=== PATIENT | male | born 1940 | race Caucasian/White ===

== ENCOUNTER → 2016-09-22 | Outpatient (CLI) | payer OTHER, MEDICARE ==
[~2016-09-22] MED LIST: IOPAMIDOL (ISOVUE-300) 50 ML VIAL IV ONE
[2016-09-22 10:30] LABS: CREATININE 1.5 mg/dL (0.7-1.3)
--- NOTE | 2016-09-22 17:28 | CT ---
CT IAC/Temporal Bones, With Intravenous Contrast History: Left Pseudomonas mastoiditis, with recurrent pain, post surgery. Left ear pain. H60.312. Technique: Axial computed tomographic images of the temporal bones at 1.25-mm slice thickness, with multiplanar and 3D reconstructions. Images performed during the uneventful intravenous administratio n of 75 mL Isovue-300 contrast. Multiplanar reconstructions including 3D reconstructions performed a nd evaluated on [employer] workstation in order to better evaluate the facial bones for fracture. Dose r eduction techniques were utilized. Comparison: CT July 2016. Findings: Postsurgical changes involving the posterolateral aspect of the left mastoid air cells, wi th a 2- x 1.2-cm osseous resection, demonstrating soft tissue in this region, with mixed density, amhet suring 1.5 x 1.7 cm. No evidence of focal fluid collection in the postoperative cavity or posterior to the left ear. The left middle ear ossicles appear intact, without fluid in the middle ear or left external auditory canal. The inferoanterior medial air cells in the left mastoid bone demonstrate n o evidence of fluid levels. No fluid in the sphenoid sinuses. No definite inflammatory changes in the visualized inferior aspect of the left parotid gland. Bilate ral paranasal sinuses are clear. Right mastoid air cells, middle ear, and external auditory canal ap pear clear. The right middle ear ossicles appear intact. Limited intracranial region demonstrates n o midline shift or hydrocephalus. Impressions 1. Postsurgical changes, with partial resection of the left mastoid bone, demonstrating residual sof t tissue, which is nonspecific. However, no evidence of drainable abscess or focal fluid collection. 2. No fluid in the left middle ear, external auditory canal, or anteromedial mastoid air cells. 3. Consider MRI of the brain, without and with contrast enhancement, which is a more sensitive study for postsurgical osteomyelitis or fluid collection. Other consideration includes [id number] tagged white blood cell nuclear medicine scan. Dr. Melendez has been paged. A Call Requested test result notification was sent via the [employer] service, 5:41:28 PM, 09/22/2016, [employer] Message ID [id number].
== END ==
LOC: FIMAGING 09:36
PROVIDERS: ATTEND Otolaryngology
DX: H92.02 Otalgia, left ear (principal); Z98.890 Other specified postprocedural states; H95.192 Other disorders following mastoidectomy, left ear; Z86.69 Personal history of other diseases of the nervous system and sense organs
CPT/HCPCS: 70481; Q9967

== ENCOUNTER → 2016-09-24 | Outpatient (CLI) | payer OTHER, MEDICARE ==
[~2016-09-24] MED LIST changes: +GADOBUTROL 10 ML VIAL IVP ONE; -IOPAMIDOL (ISOVUE-300) 50 ML VIAL IV ONE
--- NOTE | 2016-09-24 18:26 | MR ---
MRI of the Brain (Without and With Contrast) 1637 hours Clinical Indication: Left mastoiditis secondary to Pseudomonas, now with pain and possible otitis me olivia. A49.8, H60.90, H70.92, H92.02. Previous surgery. Technique: T1-weighted images were acquired axially and sagittally from the foramen magnum to the ve rtex. Axial fast inversion-recovery, fast T2-weighted, and diffusion-weighted axial images were obta ined, without contrast. Postcontrast axial and coronal images, with the uneventful intravenous admin istration of 9 mL Gadavist contrast. Comparison: CT September 22, 2016. Findings: Amorphous enhancing soft tissue, measuring 23 x 23 mm, in the left posterolateral mastoid air cells in the region of previous mastoidectomy. However, the more medial aerated mastoid air cell s demonstrate no evidence of enhancement or significant fluid. No evidence of posterior fossa leptom eningeal enhancement. Superior sagittal sinus, transverse sinuses, and sigmoid sinuses appear patent , without thrombosis. No definite enhancement in the middle ears. Paranasal sinuses are clear. No evidence of cerebellar or edema. No evidence of parotid edema. The ventricles, cisterns, and sulci are slightly widened consistent with mild cerebral atrophy. Old left occipital infarct, with encephalomalacia, measuring 2 x 2 cm. No hydrocephalus, midline shift, herniation, or epidural/subdural hematomas. No intracranial hemorrhage or masses. Diffusion-weighte d images demonstrate no acute infarct. Cerebellar tonsils are in normal position. Pituitary gland i s normal in size. Normal signal flow void in the superior sagittal sinus, basilar artery, and bilate ral internal carotid arteries indicating patency. Postcontrast images demonstrate no enhancing lesio ns or abnormal leptomeningeal enhancement. Impressions 1. Postsurgical changes, with partial left mastoidectomy, with enhancing soft tissue, probably repre senting postsurgical scarring although early localized infection/inflammation cannot be entirely excl uded. However, lack of fluid or enhancement in the medial aerated mastoid air cells suggest infectio n less likely. 2. No evidence of intracranial infection, leptomeningitis, or posterior fossa infection. 3. No evidence of thrombosis of the transverse, sigmoid, or superior sagittal sinuses. 4. No evidence of sinusitis. 5. Old left occipital infarct. Cosigned: Jayme Silva M.D. Findings and recommendations discussed with Dr. Danya Whatley at 1755 hours, on September 24, 2016. A test result has been communicated to a licensed care provider and documented in [employer], 6:08:59 PM , 09/24/2016, [employer] Message ID [id number]. E:[email or web address]
== END ==
LOC: FIMAGING 14:21
PROVIDERS: ATTEND Internal Medicine Infectious Disease
DX: H92.02 Otalgia, left ear (principal); I63.8 Other cerebral infarction
CPT/HCPCS: 70553; A9585

== ENCOUNTER → 2016-10-05 | Outpatient (CLI) | payer OTHER, MEDICARE ==
--- NOTE | 2016-10-05 09:03 | MR ---
MRI of the Brain (Without and with contrast) History: Follow-up postoperative left mastoiditis (Pseudomonas). COMPARISON: September 24, 2016 Technique: T1-weighted images were acquired axially and sagittally from the foramen magnum to the ve rtex. Axial fast inversion recovery, fast T2-weighted, GRE and diffusion-weighted axial images were obtained without contrast. Post contrast sagittal, axial and coronal T1-weighted images are obtained after intravenous administration of 10 mL of Gadavist. Findings: Enhancing soft tissue in the lateral aspect of the left mastoid sinus region is little if a t all changed with perhaps slightly less enhancement in the upper portion of the operative bed. There is no evidence for adjacent epidural abscess or transverse sinus thrombosis. A left occipital infarc tion and a tiny subcortical right parietal infarction are stable. No new infarctions have developed. Ventricular size is stable and normal considering the underlying age-appropriate cerebral atrophy. There is no intracranial mass effect or midline shift. Impression: Little if any change x 2 weeks.
== END ==
LOC: FIMAGING 06:43
PROVIDERS: ATTEND Otolaryngology
DX: H70.92 Unspecified mastoiditis, left ear (principal)
CPT/HCPCS: 70553; A9585